=== PATIENT | female | born 1975 | race Caucasian/White ===

== ENCOUNTER 2023-04-13 06:58 | Emergency (ER) | payer OTHER ==
[~2023-04-13] VITALS: Ht 154.9 cm; Wt 63.5 kg
[2023-04-13] MEDS ORDERED: IBUP200C5 PO (07:13)
[2023-04-13] MEDS ORDERED: DEXAMETHASONE SOD PHOSPHATE 4 MG INJ IM ONE (07:30)
[2023-04-13] MEDS ORDERED: DEXAMETHASONE SOD PHOSPHATE 10 MG INJ ONE (07:45)
[2023-04-13 08:21] LABS: *URINE HCG, QUAL NEGATIVE (NEGATIVE)
[2023-04-13] MEDS ORDERED: HYDR-4209 PO (08:48)
[2023-04-13 08:53] VITALS: BP 102/69; O2SAT 98
[2023-04-13] MEDS ORDERED: HYDR-3980 PO (13:59)
== END 2023-04-13 08:54 | disposition home or self-care (01) ==
LOC: ER 07:05
DX: M54.16 Radiculopathy, lumbar region (principal); R07.89 Other chest pain; Z79.1 Long term (current) use of non-steroidal anti-inflammatories (NSAID)
CPT/HCPCS: 99284; 84703; 93005; 96372; J1100; A4663